=== PATIENT | female | born 1960 | race Caucasian/White ===

== ENCOUNTER → 2018-05-30 | Outpatient (CLI) | payer OTHER ==
[~2018-05-30] MED LIST: ASPI-621 PO; LEVO25TA45 PO; METO25TA35 PO; THYR90TA PO
== END | disposition home or self-care (01) ==
LOC: CFH 07:45
PROVIDERS: ATTEND Neurological Surgery
DX: G93.5 Compression of brain (principal)
CPT/HCPCS: 70551

== ENCOUNTER → 2019-06-09 | Outpatient (CLI) | payer OTHER ==
[~2019-06-09] MED LIST changes: -ASPI-621 PO; +ASPI81TA45 PO
== END | disposition home or self-care (01) ==
LOC: CFH 10:25
PROVIDERS: ATTEND Neurological Surgery
DX: G93.5 Compression of brain (principal); M50.322 Other cervical disc degeneration at C5-C6 level; E03.9 Hypothyroidism, unspecified; M48.02 Spinal stenosis, cervical region; F17.200 Nicotine dependence, unspecified, uncomplicated; Q07.00 Arnold-Chiari syndrome without spina bifida or hydrocephalus; Z83.3 Family history of diabetes mellitus; Z82.61 Family history of arthritis
CPT/HCPCS: 72141